=== PATIENT | female | born 1960 | race Caucasian/White ===

== ENCOUNTER 2018-05-31 12:38 | Day surgery (SDC) | payer OTHER ==
[2018-05-31] MEDS ORDERED: FENTAnyl 50 MCG/ML VIAL (14:51)
[2018-05-31] MEDS ORDERED: MIDAZOLAM 1 MG/ML 2 ML INJ (14:51)
== END 2018-05-31 15:20 | disposition home or self-care (01) ==
LOC: GIL 12:38
DX: Z12.11 Encounter for screening for malignant neoplasm of colon (principal)
CPT/HCPCS: 45378